=== PATIENT | male | born 1960 | race Asian ===

== ENCOUNTER 2018-02-28 07:38 | Observation (INO) | payer SELFPAY ==
[~2018-02-28] VITALS: Ht 162.6 cm; Wt 73.6 kg
[2018-02-28] VITALS (15 sets, daily range): BP systolic 99–155; BP diastolic 67–101
[2018-02-28 09:00] LABS: BASOPHILS % (AUTO) 0.4 % (0-1); EOSINOPHILS % (AUTO) 0 % (0-6); HEMOGLOBIN 15.3 g/dl (14.0-17.9); LYMPHOCYTES # (AUTO) 0.5 X10'3 (1.1-4.8); LYMPHOCYTES % (AUTO) 9.2 % (21-51); MEAN CORPUSCULAR HEMOGLOBIN 30.8 PG (27.0-31.0); MEAN CORPUSCULAR HGB CONC 33.9 % (33.0-36.5); MEAN CORPUSCULAR VOLUME 90.9 FL (78-98); MEAN PLATELET VOLUME 7.6 FL (7.4-10.4); MONOCYTES % (AUTO) 0.3 % (2-12); NEUTROPHILS # (AUTO) 5.2 X10'3 (1.8-7.7); NEUTROPHILS % (AUTO) 90.1 % (42-75); PLATELET COUNT 172 X10'3 (140-440); RED BLOOD COUNT 4.95 X10'6 (4.70-6.10); RED CELL DISTRIBUTION WIDTH 12.7 % (11.5-14.5); WHITE BLOOD COUNT 5.8 X10'3 (4.5-11.0)
[2018-02-28 09:02] LABS: CLARITY,URINE CLEAR (Clear); COLOR,URINE YELLOW (Yellow); GLUCOSE, URINE NEGATIVE (Neg); KETONES,URINE NEGATIVE (Neg); LEUKOCYTE ESTERASE ,URINE NEGATIVE (Neg); NITRITES, URINE NEGATIVE (Neg); OCCULT BLOOD,URINE NEGATIVE (Neg); PROTEIN,URINE NEGATIVE (Neg); UROBILINOGEN,URINE 0.2 E.U/dL (0.2-1.0)
[2018-02-28 09:04] LABS: UA COLLECTION TYPE CLN CATCH MIDSTREAM
[2018-02-28 09:14] LABS: ALANINE AMINOTRANSFERASE 36 U/L (12-78); ALBUMIN 3.1 G/DL (3.4-5.0); ALBUMIN/GLOBULIN RATIO 0.9 (1.1-1.5); ALKALINE PHOSPHATASE 85 IU/L (46-116); ANION GAP 10 (8-16); ASPARTATE AMINO TRANSFERASE 17 U/L (10-37); BILIRUBIN,TOTAL 2.1 MG/DL (0.1-1.0); BLOOD UREA NITROGEN 10 MG/DL (7-18); BUN/CREATININE RATIO 9.4 (5.4-32.0); CALCIUM 8.1 MG/DL (8.5-10.1); CHLORIDE 104 MMOL/L (99-107); CREATININE 1.06 MG/DL (0.60-1.10); GLUCOSE 108 MG/DL (70-104); LIPASE 87 U/L (73-393); POTASSIUM 3.5 MMOL/L (3.5-5.1); SODIUM 139 MMOL/L (135-145); TOTAL CARBON DIOXIDE 25.5 MMOL/L (24-32); TOTAL PROTEIN 6.7 G/DL (6.4-8.2); eGFR 73 ML/MIN
[2018-02-28 09:17] LABS: INR 1.1 INR; PROTHROMBIN TIME 10.8 SECONDS (9.0-12.0)
[2018-02-28 09:21] LABS: PLATELET ESTIMATE NORMAL; TOTAL CELLS COUNTED 100
[2018-02-28] MEDS ORDERED: iohexol 300mg/ml 100ml inj. ONE ×2 (09:28→09:40)
[2018-02-28] MEDS ORDERED: NO HOME MEDS (11:07)
[2018-02-28] MEDS ORDERED: ondansetron/PF 4mg/2ml inj IV PRN ×2 (11:15→13:00)
[2018-02-28] MEDS ORDERED: BUPIVAcaine/PF 2.5mg/ml (0.25%) 10ml vial ONE (11:15)
[2018-02-28] MEDS ORDERED: HYDROcodone/acetaminophen 10/325mg tab PO PRN (11:15)
[2018-02-28] MEDS ORDERED: midazolam 2 mg/2 ml injection ONE (11:35)
[2018-02-28] MEDS ORDERED: fentaNYL/PF 50MCG/1 ML 2ML syringe ONE ×2 (11:35→11:55)
[2018-02-28] MEDS ORDERED: sevoflurane 250ml liquid IH ONE (11:37)
[2018-02-28] MEDS ORDERED: dexamethasone sod phosphate 10mg/ml inj ONE (11:37)
[2018-02-28] MEDS ORDERED: rocuronium 10mg/ml inj IV ONE (11:37)
[2018-02-28] MEDS ORDERED: propofol inj 20 ML IV ONE (11:38)
[2018-02-28] MEDS ORDERED: LIDOcaine 2% (20mg/ml) 5ml vial ONE (11:38)
[2018-02-28] MEDS ORDERED: ceFOXitin 1000 MG inj ONE (12:05)
[2018-02-28] MEDS ORDERED: meperidine/PF 50mg/ml syringe ONE (12:38)
[2018-02-28] MEDS ORDERED: ringers solution, lacted 1,000 ML IV SCH (12:59)
[2018-02-28] MEDS ORDERED: proCHLORperazine 10 MG/2 ml inj IV PRN (13:00)
[2018-02-28] MEDS ORDERED: meperidine/PF 25mg/ml syringe IV PRN ×3 (13:00)
[2018-02-28] MEDS ORDERED: morphine 4 MG/ML inj SYRINge IV PRN (13:00)
[2018-02-28] MEDS ORDERED: glycopyrrolate 0.2mg/ml inj ONE (13:04)
[2018-02-28] MEDS ORDERED: neostigmine methylsulfate 1 MG/ML 10ml vial ONE (13:04)
[2018-02-28] MEDS ORDERED: ondansetron/PF 4mg/2ml inj ONE (13:04)
[2018-02-28] MEDS: piperacillin/tazo 3.375gm/50ml 50 ML IV SCH ×2 (15:13→19:32)
[2018-02-28] MEDS ORDERED: ceFOXitin 1 GM ADDVANTAGE BAG 50 ML IV SCH (16:00)
[2018-02-28] MEDS: morphine 4 MG/ML inj SYRINge IV PRN (19:44)
[2018-03-01] VITALS: BP 134/83
[2018-03-01] MEDS: piperacillin/tazo 3.375gm/50ml 50 ML IV SCH ×3 (01:21→13:38)
[2018-03-01] MEDS: morphine 4 MG/ML inj SYRINge IV PRN (01:22)
[2018-03-01] MEDS ORDERED: enoxaparin 40mg/0.4ml syringe SUBCUT SCH (08:00)
[2018-03-01 09:09] VITALS: BP 177/84
[2018-03-01 11:32] VITALS: BP 133/83
[2018-03-01] MEDS ORDERED: HYDR-4353 PO (11:58)
[2018-03-01] MEDS ORDERED: magnesium hydroxide 30ml (MOM) UD suspension PO ONE (14:25)
== END 2018-03-01 15:00 | disposition home or self-care (01) ==
LOC: ER 07:39 → SUR 3N 11:11
PROVIDERS: ADMIT Surgery; ATTEND Surgery
DX: K35.32 Acute appendicitis with perforation, localized peritonitis, and gangrene, without abscess (principal); F17.200 Nicotine dependence, unspecified, uncomplicated
CPT/HCPCS: 36415; 44970; 74177; 80053; 81003; 83690; 85025; 85610; 93005; 93971; 96365; 96366; 96372; 96375; 96376; 99285; G0378; J0694; J1100; J2001; J2175; J2250; J2270; J2405; J2543; J2704; J2710; J3010; J3490; J7120; Q9967; A7000; J1650